=== PATIENT | female | born 1990 | race Caucasian/White ===

== ENCOUNTER 2020-01-23 15:35 | Observation (INO) | payer SELFPAY ==
[~2020-01-23] VITALS: Ht 162.6 cm; Wt 104.3 kg
[2020-01-23] MEDS: TERBUTALINE SULFATE 1 MG/ML VIAL SUBCUT PRN (17:44)
== END 2020-01-23 21:13 | disposition home or self-care (01) ==
LOC: SPU 15:35
PROVIDERS: ADMIT Specialist; ATTEND Specialist
DX: O62.9 Abnormality of forces of labor, unspecified (principal); Z3A.24 24 weeks gestation of pregnancy
CPT/HCPCS: 76819; 96372; G0378; J3105